=== PATIENT | male | born 1955 | race African-American/Black ===

== ENCOUNTER 2016-11-22 19:53 | Emergency (ER) | payer MEDICAID ==
[~2016-11-22] VITALS: Ht 185.4 cm; Wt 80.0 kg
[~2016-11-22 19:53] MED LIST: AMLO10TA4; ASPI-1035 PO; AZOPT RIGHTEYE; BRIM5DRO RIGHTEYE; CAPSAICIN CREAM; DORZ10DR9 RIGHTEYE; DOXE10CA2 PO; FINA5TAB11 PO; LATA2.5D2 RIGHTEYE; LORA-250; NAPR550T4 PO; SYN175; TRAM50TA; ZOLP10TA2
[2016-11-22] MEDS ORDERED: ONDANSETRON HCL 4MG/2ML VIAL IV STA (20:53)
[2016-11-22] MEDS ORDERED: SODIUM CHLORIDE 0.9% 1,000 ML IV ONE (20:53)
[2016-11-22] MEDS ORDERED: KETOROLAC 30MG/ML VIAL IV STA (20:53)
[2016-11-22 21:28] LABS: BASOPHILS % 0.9 % (0.0-2.0); DIFFERENTIAL COMMENT 0; EOSINOPHILS % 0.1 % (0.0-5.0); HEMATOCRIT. 48.2 % (42.0-52.0); HEMOGLOBIN. 16.3 g/dL (14.0-18.0); LYMPHOCYTES % 15.3 % (20.0-50.0); MEAN CORPUSCULAR HEMOGLOBIN 32.3 pg (28.0-32.0); MEAN CORPUSCULAR HGB CONC 33.7 g/dL (31.0-37.0); MEAN CORPUSCULAR VOLUME 95.9 fL (80.0-94.0); MEAN PLATELET VOLUME 8.8 fl (7.4-10.4); MONOCYTES % 5.1 % (2.0-8.0); NEUTROPHILS % 78.6 % (40.0-76.0); PLATELET 229 x1000/uL (130-400); RED BLOOD CELL COUNT 5.03 mill/uL (4.7-6.1); RED CELL DISTRIBUTION WIDTH 13.4 % (11.6-14.6); WHITE BLOOD COUNT 4.7 x1000/uL (4.5-11.0)
[2016-11-22 21:31] LABS: CHLORIDE 103 mEq/L (98-107); INDEX HEMOLYSI 1 (1-3); INDEX ICTERIC 1 (1-4); INDEX LIPEMIC 1 (1-3)
[2016-11-22 21:33] LABS: CALCIUM 9.6 mg/dL (8.5-10.1); INR 1.1; PROTHROMBIN TIME 11.5 sec
[2016-11-22 21:39] LABS: ALANINE AMINOTRANSFERASE 25 IU/L (13-61); ALBUMIN 4.2 g/dL (3.4-5.0); ANION GAP 16; CARBON DIOXIDE 26 mEq/L (21-32); UREA NITROGEN BLOOD 12 mg/dL (7-21); eGFR > 60 mL/min (>60)
[2016-11-22] MEDS ORDERED: MORPHINE SULFATE 4 MG/ML CPJ (NOT FOR IM USE) IV ONE (22:30)
[2016-11-22 23:15] VITALS: BP 175/92
[2016-11-22 23:37] LABS: CLARITY URINE CLEAR (CLEAR); COLOR URINE YELLOW (YELLOW); GLUCOSE URINE TRACE (NEGATIVE); KETONES URINE NEGATIVE (NEGATIVE); LEUKOCYTE ESTERASE URINE NEGATIVE (NEGATIVE); NITRITE URINE NEGATIVE (NEGATIVE); OCCULT BLOOD URINE 1+ (NEGATIVE); PROTEIN URINE 1+ (NEGATIVE); SPECIFIC GRAVITY URINE 1.014 (1.005-1.030); UROBILINOGEN URINE 0.2 E.U./dL (0.2-1.0)
[2016-11-23 00:07] LABS: BACTERIA URINE TRACE; SQUAMOUS EPITHELIAL CELL URINE NONE SEEN /lpf (RARE/1+); WBC URINE 0-2 /hpf (0-2)
== END 2016-11-23 00:12 | disposition home or self-care (01) ==
LOC: ER 19:53
DX: R10.33 Periumbilical pain (principal); I10 Essential (primary) hypertension; F17.210 Nicotine dependence, cigarettes, uncomplicated; F12.10 Cannabis abuse, uncomplicated; Z79.82 Long term (current) use of aspirin; Z79.899 Other long term (current) drug therapy; Z90.49 Acquired absence of other specified parts of digestive tract
CPT/HCPCS: 36415; 74176; 80053; 81001; 83690; 85025; 85610; 96361; 96374; 96375; 99285; 99406; J1885; J2270; J2405; J7030; Z7610

== ENCOUNTER 2017-11-07 19:16 | Emergency (ER) | payer MEDICAID ==
[~2017-11-07] VITALS: Ht 182.9 cm; Wt 88.5 kg
[~2017-11-07 19:16] MED LIST changes: -ASPI-1035 PO; +ASPI-1159 PO; +NAPR-1164 PO; -NAPR550T4 PO
[2017-11-07] MEDS ORDERED: SODIUM CHLORIDE 0.9% 1,000 ML IV ONE (20:26)
[2017-11-07] MEDS ORDERED: MORPHINE SULFATE 4 MG/ML CPJ (NOT FOR IM USE) IV STA (20:26)
[2017-11-07] MEDS ORDERED: ONDANSETRON HCL 4MG/2ML VIAL IV STA (20:26)
[2017-11-07 20:52] LABS: BASOPHILS % 0.3 % (0.0-2.0); EOSINOPHILS % 0.1 % (0.0-5.0); HEMATOCRIT. 49.6 % (42.0-52.0); HEMOGLOBIN. 17.6 g/dL (14.0-18.0); LYMPHOCYTES % 14.2 % (20.0-50.0); MEAN CORPUSCULAR VOLUME 93.2 fL (80.0-94.0); MEAN PLATELET VOLUME 8.4 fl (7.4-10.4); MONOCYTES % 14.2 % (2.0-8.0); NEUTROPHILS % 71.2 % (40.0-76.0); PLATELET 241 x1000/uL (130-400); RED BLOOD CELL COUNT 5.33 mill/uL (4.7-6.1); RED CELL DISTRIBUTION WIDTH 14.1 % (11.6-14.6)
[2017-11-07 20:56] LABS: INR 1.1
[2017-11-07 20:58] LABS: CHLORIDE 100 mEq/L (98-107)
[2017-11-07 21:49] LABS: CLARITY URINE CLOUDY (CLEAR); COLOR URINE DARK YELLOW (YELLOW); KETONES URINE NEGATIVE (NEGATIVE); LEUKOCYTE ESTERASE URINE NEGATIVE (NEGATIVE); NITRITE URINE NEGATIVE (NEGATIVE); OCCULT BLOOD URINE 2+ (NEGATIVE); PH URINE 5.5 (4.5-8.0); PROTEIN URINE 3+ (NEGATIVE); SPECIFIC GRAVITY URINE 1.021 (1.005-1.030); UROBILINOGEN URINE 0.2 E.U./dL (0.2-1.0)
[2017-11-07] MEDS ORDERED: MAGNESIUM/ALUMINUM HYDROXIDE/SIMETHICONE 30ML UDC PO ONE (23:15)
[2017-11-07] MEDS ORDERED: IOHEXOL-300 100 ML BOTTLE ONE (23:28)
[2017-11-08] MEDS ORDERED: MORPHINE SULFATE 2 MG/ML CPJ (NOT FOR IM USE) IV ONE (01:15)
[2017-11-08] MEDS ORDERED: MORPHINE SULFATE 4 MG/ML CPJ (NOT FOR IM USE) IV NR (02:30)
[2017-11-08] MEDS ORDERED: POTASSIUM CHLORIDE 20MEQ TABLET SR PO ONE (04:15)
[2017-11-08 05:32] VITALS: BP 133/82
== END 2017-11-08 05:50 | disposition home or self-care (01) ==
LOC: ER 19:38
DX: K52.9 Noninfective gastroenteritis and colitis, unspecified (principal); K59.00 Constipation, unspecified; I10 Essential (primary) hypertension; F17.200 Nicotine dependence, unspecified, uncomplicated; F12.10 Cannabis abuse, uncomplicated; Z90.49 Acquired absence of other specified parts of digestive tract; Z79.82 Long term (current) use of aspirin
CPT/HCPCS: 36415; 74177; 80053; 81003; 83690; 85025; 85610; 93005; 96374; 96375; 96376; 99285; J2270; J2405; J7030; Q9967

== ENCOUNTER 2018-01-31 17:24 | Emergency (ER) | payer MEDICAID ==
[~2018-01-31] VITALS: Ht 177.8 cm; Wt 74.0 kg
[2018-01-31] MEDS ORDERED: MORPHINE SULFATE 4 MG/ML CPJ (NOT FOR IM USE) IV STA ×2 (17:45→18:50)
[2018-01-31] MEDS ORDERED: ONDANSETRON HCL 4MG/2ML VIAL IV STA (17:45)
[2018-01-31] MEDS ORDERED: SODIUM CHLORIDE 0.9% 1,000 ML IV ONE (17:45)
[2018-01-31 18:05] LABS: BASOPHILS % 1.2 % (0.0-2.0); HEMATOCRIT. 45.4 % (42.0-52.0); HEMOGLOBIN. 15.6 g/dL (14.0-18.0); LYMPHOCYTES % 29.2 % (20.0-50.0); MEAN CORPUSCULAR HEMOGLOBIN 32.5 pg (28.0-32.0); MEAN CORPUSCULAR VOLUME 94.8 fL (80.0-94.0); MEAN PLATELET VOLUME 7.8 fl (7.4-10.4); MONOCYTES % 8.1 % (2.0-8.0); NEUTROPHILS % 59.5 % (40.0-76.0); PLATELET 234 x1000/uL (130-400); RED BLOOD CELL COUNT 4.79 mill/uL (4.7-6.1)
[2018-01-31 18:12] LABS: CHLORIDE 106 mEq/L (98-107); INR 1.1; PROTHROMBIN TIME 11.2 sec (9.4-11.6)
[2018-01-31] MEDS ORDERED: ONDANSETRON HCL 4MG/2ML VIAL IV ONE (19:00)
[2018-01-31 19:01] LABS: CLARITY URINE CLEAR (CLEAR); COLOR URINE YELLOW (YELLOW); KETONES URINE TRACE (NEGATIVE); LEUKOCYTE ESTERASE URINE NEGATIVE (NEGATIVE); NITRITE URINE NEGATIVE (NEGATIVE); OCCULT BLOOD URINE NEGATIVE (NEGATIVE); PROTEIN URINE NEGATIVE (NEGATIVE); SPECIFIC GRAVITY URINE 1.015 (1.005-1.030); UROBILINOGEN URINE 0.2 E.U./dL (0.2-1.0)
[2018-01-31] MEDS ORDERED: IOHEXOL-300 100 ML BOTTLE ONE (20:47)
[2018-01-31 22:39] VITALS: BP 163/90
== END 2018-01-31 23:00 | disposition home or self-care (01) ==
LOC: ER 17:30 → CANBEDREQ 23:13
DX: R10.9 Unspecified abdominal pain (principal); R11.10 Vomiting, unspecified; E11.9 Type 2 diabetes mellitus without complications; I10 Essential (primary) hypertension; F17.200 Nicotine dependence, unspecified, uncomplicated; F12.10 Cannabis abuse, uncomplicated
CPT/HCPCS: 36415; 71045; 74177; 80053; 81003; 82962; 83690; 85025; 85610; 96361; 96374; 96375; 96376; 99285; G0482; J2270; J2405; J7030; Q9967; Z7610

== ENCOUNTER 2018-01-31 23:27 | Emergency (ER) | payer MEDICAID ==
[~2018-01-31] VITALS: Ht 177.8 cm; Wt 66.0 kg
[2018-02-01] MEDS ORDERED: ONDANSETRON HCL 4MG/2ML VIAL IV STA (05:18)
[2018-02-01] MEDS ORDERED: MORPHINE SULFATE 4 MG/ML CPJ (NOT FOR IM USE) IV STA (05:18)
[2018-02-01] MEDS ORDERED: TAMSULOSIN HCL 0.4MG SR CAPSULE PO SCH (06:30)
[2018-02-01] MEDS ORDERED: KETOROLAC 30MG/ML VIAL IV ONE (06:30)
[2018-02-01] MEDS ORDERED: FAMOTIDINE 20MG/2ML VIAL IV SCH (06:30)
[2018-02-01 07:02] LABS: CLARITY URINE CLEAR (CLEAR); COLOR URINE YELLOW (YELLOW); KETONES URINE NEGATIVE (NEGATIVE); LEUKOCYTE ESTERASE URINE NEGATIVE (NEGATIVE); NITRITE URINE NEGATIVE (NEGATIVE); OCCULT BLOOD URINE 1+ (NEGATIVE); PH URINE 6.5 (4.5-8.0); PROTEIN URINE 2+ (NEGATIVE); SPECIFIC GRAVITY URINE 1.018 (1.005-1.030); UROBILINOGEN URINE 0.2 E.U./dL (0.2-1.0)
[2018-02-01 08:03] VITALS: BP 161/89
[2018-02-02] MEDS ORDERED: FAMOTIDINE 20MG/2ML VIAL IV SCH (09:00)
== END 2018-02-01 08:28 | disposition home or self-care (01) ==
LOC: ER 02-01 00:49
DX: N20.0 Calculus of kidney (principal); K85.90 Acute pancreatitis without necrosis or infection, unspecified; E11.9 Type 2 diabetes mellitus without complications; I10 Essential (primary) hypertension; E05.90 Thyrotoxicosis, unspecified without thyrotoxic crisis or storm; F12.10 Cannabis abuse, uncomplicated; N40.0 Benign prostatic hyperplasia without lower urinary tract symptoms; Z90.49 Acquired absence of other specified parts of digestive tract
CPT/HCPCS: 81003; 96374; 96375; 99284; J1885; J2270; J2405; J3490; Z7610; 96376

== ENCOUNTER 2021-04-25 06:42 | Inpatient (IN) | payer MEDICARE, MEDICAID ==
[~2021-04-25] VITALS: Ht 180.3 cm; Wt 59.0 kg
[~2021-04-25 06:42] MED LIST changes: -ASPI-1159 PO; +ASPI-1497 PO; +LATA2.5D14 RIGHTEYE; -LATA2.5D2 RIGHTEYE
[2021-04-25] MEDS ORDERED: LACTATED RINGERS 1,000 ML IV SCH (07:30)
[2021-04-25] MEDS ORDERED: IBUP-2030 MT (09:40)
[2021-04-25] MEDS ORDERED: TAMS-11 MT (09:40)
[2021-04-25] MEDS ORDERED: LIDO30CR20 TP (09:44)
[2021-04-25] MEDS ORDERED: PROPOFOL 200MG/20ML VIAL IV ONE (09:45)
[2021-04-25] MEDS ORDERED: FENTANYL CITRATE/PF 50MCG/ML 2ML VIAL ONE ×2 (09:45→10:42)
[2021-04-25] MEDS ORDERED: MIDAZOLAM HCL 2 MG/2 ML VIAL ONE (09:46)
[2021-04-25] MEDS ORDERED: CEFAZOLIN SODIUM 1000MG/VIAL ONE (10:12)
[2021-04-25] MEDS ORDERED: GLYCOPYRROLATE 0.2 MG/ML 2ML VIAL ONE (10:17)
[2021-04-25] MEDS ORDERED: EPHEDRINE SULFATE 50MG/ML VIAL ONE (10:40)
[2021-04-25] MEDS ORDERED: KETOROLAC 30MG/ML VIAL ONE (11:07)
[2021-04-25] MEDS ORDERED: LORAZEPAM 1MG TABLET PO PRN (11:15)
[2021-04-25] MEDS ORDERED: MAGNESIUM HYDROXIDE 400MG/5ML 30ML UDC PO PRN (11:15)
[2021-04-25] MEDS ORDERED: NALOXONE HCL 0.4MG/ML VIAL IV PRN (11:30)
[2021-04-25] MEDS ORDERED: LORAZEPAM 2MG/ML CPJ IV PRN (11:40)
[2021-04-25] MEDS ORDERED: LORAZEPAM 2MG/ML CPJ ONE (11:47)
[2021-04-25] MEDS ORDERED: ONDANSETRON HCL 4MG/2ML INJ IV PRN (12:15)
[2021-04-25] MEDS ORDERED: MEPERIDINE HCL/PF 25MG/ML CPJ IV PRN (12:15)
[2021-04-25] MEDS ORDERED: FENTANYL CITRATE/PF 50MCG/ML 2ML VIAL IV PRN (12:15)
[2021-04-25] MEDS ORDERED: HYDROMORPHONE HCL/PF 2MG/ML CPJ IV PRN (12:15)
[2021-04-25 13:02] LABS: HEMOGLOBIN 13.9 g/dL (14.0-18.0)
[2021-04-25] MEDS ORDERED: OXYBUTYNIN CHLORIDE 5MG TABLET PO NR (13:30)
[2021-04-25] MEDS ORDERED: CEFAZOLIN SODIUM 1000MG/VIAL IV SCH (14:00)
[2021-04-25 16:00] VITALS: BP 154/77
[2021-04-25 18:39] VITALS: BP 135/77
[2021-04-25] MEDS: DOCUSATE SODIUM 100MG CAPSULE PO SCH (18:47)
[2021-04-25] MEDS: HYDROCODONE/ACETAMINOPHEN 10/325MG TABLET PO PRN (18:58)
[2021-04-25] MEDS ORDERED: POTASSIUM CHLORIDE 20MEQ/PACKET PO SCH ×2 (19:02→20:15)
[2021-04-25] MEDS ORDERED: TAMS-11 PO (19:15)
[2021-04-25] MEDS ORDERED: LEVO200T8 PO (19:15)
[2021-04-25] MEDS ORDERED: LIDO35.44 TP (19:15)
[2021-04-25] MEDS ORDERED: FINA5TAB3 PO (19:15)
[2021-04-25] MEDS ORDERED: IBUP-2030 PO (19:15)
[2021-04-25] MEDS ORDERED: DORZ10DR9 EACHEYE (19:15)
[2021-04-25] MEDS ORDERED: AMLO10TA80 MT (19:15)
[2021-04-25] MEDS ORDERED: *PATIENT'S OWN MEDICATION STORAGE XX SCH (19:45)
[2021-04-25 20:00] VITALS: BP 126/76
[2021-04-25] MEDS: OXYBUTYNIN CHLORIDE 5MG TABLET PO SCH (21:15)
[2021-04-25] MEDS ORDERED: CEFAZOLIN 1000MG PREMIX 50 ML IV SCH (22:00)
[2021-04-26] VITALS: BP 147/91
[2021-04-26] MEDS ORDERED: OMEPRAZOLE 20MG CAPSULE EXTENDED RELEASE PO PRN (01:00)
[2021-04-26] MEDS ORDERED: LORAZEPAM 2MG/ML CPJ IV PRN (02:30)
[2021-04-26] MEDS: OMEPRAZOLE 20MG CAPSULE EXTENDED RELEASE PO SCH ×2 (03:17→17:09)
[2021-04-26] MEDS: HYDROCODONE/ACETAMINOPHEN 5/325MG TABLET PO PRN ×2 (03:17→12:26)
[2021-04-26 04:00] VITALS: BP 107/74
[2021-04-26] MEDS: OXYBUTYNIN CHLORIDE 5MG TABLET PO SCH ×3 (05:20→21:52)
[2021-04-26 06:50] LABS: CHLORIDE 108 mEq/L (98-107)
[2021-04-26 06:56] LABS: EOSINOPHILS % 2.1 % (0.0-5.0); HEMATOCRIT. 40.3 % (42.0-52.0); HEMOGLOBIN. 13.7 g/dL (14.0-18.0); LYMPHOCYTES % 12.4 % (20.0-50.0); MEAN CORPUSCULAR HEMOGLOBIN 32.5 pg (28.0-32.0); MEAN CORPUSCULAR VOLUME 95.9 fL (80.0-94.0); MEAN PLATELET VOLUME 8.5 fl (7.4-10.4); MONOCYTES % 10.1 % (2.0-8.0); NEUTROPHILS % 74.4 % (40.0-76.0); PLATELET 201 x1000/uL (130-400); RED CELL DISTRIBUTION WIDTH 14.2 % (11.6-14.6)
[2021-04-26] MEDS: HYDROCODONE/ACETAMINOPHEN 10/325MG TABLET PO PRN ×2 (07:14→17:08)
[2021-04-26] MEDS: DORZOLAM/TIMOLOL 2.23/0.68% OPHTH DROPS 10ML RIGHTEYE SCH ×2 (08:40→21:51)
[2021-04-26] MEDS: AMLODIPINE 10MG TABLET PO SCH (08:41)
[2021-04-26] MEDS: LEVOTHYROXINE SODIUM 175MCG TABLET PO SCH (08:41)
[2021-04-26] MEDS: DOCUSATE SODIUM 100MG CAPSULE PO SCH ×2 (08:41→17:09)
[2021-04-26] MEDS ORDERED: POTASSIUM CHLORIDE 20MEQ TABLET SR PO SCH ×2 (10:00→14:00)
[2021-04-26] MEDS ORDERED: LEVOFLOXACIN 500MG TABLET PO SCH (11:00)
[2021-04-26] MEDS: BRIMONIDINE 0.2% OPHTH DROPS 5ML RIGHTEYE SCH ×2 (17:10→21:51)
[2021-04-26 20:00] VITALS: BP 130/74
[2021-04-26] MEDS ORDERED: LATANOPROST 0.005% OPHTH DROPS 2.5ML RIGHTEYE SCH (21:00)
[2021-04-27] VITALS: BP 142/66
[2021-04-27 04:00] VITALS: BP 120/66
[2021-04-27] MEDS: LEVOTHYROXINE SODIUM 175MCG TABLET PO SCH (06:26)
[2021-04-27] MEDS: BRIMONIDINE 0.2% OPHTH DROPS 5ML RIGHTEYE SCH (06:26)
[2021-04-27] MEDS: OMEPRAZOLE 20MG CAPSULE EXTENDED RELEASE PO SCH (06:26)
[2021-04-27] MEDS: OXYBUTYNIN CHLORIDE 5MG TABLET PO SCH (06:29)
[2021-04-27 08:00] VITALS: BP 115/58
[2021-04-27] MEDS: AMLODIPINE 10MG TABLET PO SCH (08:59)
[2021-04-27] MEDS: DOCUSATE SODIUM 100MG CAPSULE PO SCH (09:00)
[2021-04-27] MEDS: DORZOLAM/TIMOLOL 2.23/0.68% OPHTH DROPS 10ML RIGHTEYE SCH (09:01)
[2021-04-27 11:26] VITALS: BP 115/56
[2021-04-27 12:00] VITALS: BP 133/73
[2021-04-27] MEDS ORDERED: FAMOTIDINE 20MG TABLET PO SCH (21:00)
== END 2021-04-27 12:16 | disposition home or self-care (01) | DRG 482 ==
LOC: OR 06:42 → 6EST 06:43
PROVIDERS: ADMIT Urology; ATTEND Urology
PROC: 0VB08ZZ Excision of Prostate, Via Natural or Artificial Opening Endoscopic (ICD-10-PCS; principal; 2021-04-25)
DX: N40.1 Benign prostatic hyperplasia with lower urinary tract symptoms (principal); N13.8 Other obstructive and reflux uropathy; N32.89 Other specified disorders of bladder; F17.210 Nicotine dependence, cigarettes, uncomplicated; Z20.822 Contact with and (suspected) exposure to COVID-19; N41.1 Chronic prostatitis; Z80.3 Family history of malignant neoplasm of breast; Z87.442 Personal history of urinary calculi; Z79.899 Other long term (current) drug therapy; Z90.49 Acquired absence of other specified parts of digestive tract
CPT/HCPCS: 36415; 71045; 80048; 80051; 84132; 85014; 85018; 85025; 87426; 88305; 93005; J0690; J1170; J1885; J2060; J2250; J2704; J3010; J3490

== ENCOUNTER 2025-06-21 08:44 | Inpatient (IN) | payer MEDICARE, MEDICAID ==
[2025-06-21] VITALS (24 sets, daily range): BP systolic 128–178; BP diastolic 73–101; PULSE 53–78; RESP 12–25; TEMP 36.9–36.974; O2SAT 93–100
[~2025-06-21] VITALS: Ht 175.3 cm; Wt 53.5 kg
[~2025-06-21 08:44] MED LIST changes: -AMLO10TA4; +AMLO10TA80 PO; -ASPI-1497 PO; -AZOPT RIGHTEYE; -CAPSAICIN CREAM; +DOCU-422 PO; +DORZ10DR9 EACHEYE; -DOXE10CA2 PO; +FAMO20TA8 PO; +IBUP-2028 MT; -LATA2.5D14 RIGHTEYE; +LATA2.5D7 RIGHTEYE; +LIDO30CR20 TP; -LORA-250; +METF-414 PO; -NAPR-1164 PO; +TAMS-54 MT; +TOPUD PO; -TRAM50TA; -ZOLP10TA2
[2025-06-21] MEDS: IOHEXOL-350 100 ML BOTTLE ONE (09:06)
[2025-06-21 09:34] LABS: BASOPHILS % 2.4 % (0.0-2.0); EOSINOPHILS % 2.8 % (0.0-5.0); HEMATOCRIT. 27.3 % (42.0-52.0); HEMOGLOBIN. 9.0 g/dL (14.0-18.0); LYMPHOCYTES % 17.2 % (20.0-50.0); MEAN PLATELET VOLUME 8.5 fl (7.4-10.4); MONOCYTES % 7.8 % (2.0-8.0); NEUTROPHILS % 69.8 % (40.0-76.0); PLATELET 266 x1000/uL (130-400); RED BLOOD CELL COUNT 2.59 mill/uL (4.7-6.1); RED CELL DISTRIBUTION WIDTH 17.1 % (11.6-14.6)
[2025-06-21 09:44] LABS: CLARITY URINE CLEAR (CLEAR); COLOR URINE YELLOW (YELLOW); GLUCOSE URINE NEGATIVE (NEGATIVE); KETONES URINE NEGATIVE (NEGATIVE); LEUKOCYTE ESTERASE URINE NEGATIVE (NEGATIVE); NITRITE URINE NEGATIVE (NEGATIVE); OCCULT BLOOD URINE NEGATIVE (NEGATIVE); PH URINE 5.5 (4.5-8.0); PROTEIN URINE NEGATIVE (NEGATIVE); SPECIFIC GRAVITY URINE 1.028 (1.005-1.030); UROBILINOGEN URINE 0.2 E.U./dL (0.2-1.0)
[2025-06-21 09:47] LABS: TROPONIN I HIGH SENSITIVITY 40 ng/L (3.0-53)
[2025-06-21 10:10] LABS: CREATININE 1.4 mg/dL (0.6-1.3); UREA NITROGEN BLOOD 24 mg/dL (9-23)
[2025-06-21 10:12] LABS: ASPARTATE AMINOTRANSFERASE 38 IU/L (<34); BILIRUBIN DIRECT 0.2 mg/dL (<=3.0); BILIRUBIN TOTAL 0.5 mg/dL (0.1-1.0); PROTEIN TOTAL 6.3 g/dL (6.0-8.3)
[2025-06-21 10:14] LABS: *AMPHETAMINES SCREEN URINE NEGATIVE (NEGATIVE); *BARBITURATES SCREEN URINE NEGATIVE (NEGATIVE); *BENZODIAZEPINES SCREEN URINE NEGATIVE (NEGATIVE); *COCAINE SCREEN URINE NEGATIVE (NEGATIVE); CANNABINOID URINE SCREEN NEGATIVE (NEGATIVE); ECSTASY MDMA SCREEN URINE NEGATIVE (NEGATIVE); METHADONE URINE SCREEN NEGATIVE (NEGATIVE); OPIATES URINE SCREEN PRESUMPTIVE POSITIVE (NEGATIVE); PHENCYCLIDINE URINE SCREEN NEGATIVE (NEGATIVE)
[2025-06-21 10:43] LABS: INR 1.1
[2025-06-21] MEDS: MORPHINE SULFATE 2 MG/ML INJ (NOT FOR IM USE) IV PRN (10:54)
[2025-06-21] MEDS: DEXT 5%/LACTATED RINGERS 1,000 ML IV SCH (10:59)
[2025-06-21] MEDS: LEVETIRACETAM 500MG PREMIX 100 ML IV SCH (10:59)
[2025-06-21] MEDS ORDERED: NALOXONE HCL 0.4MG/ML VIAL IV PRN (12:45)
[2025-06-21] MEDS ORDERED: CLONIDINE 0.1MG TABLET PO PRN (13:00)
[2025-06-21] MEDS ORDERED: IPRATROPIUM/ALBUTEROL 0.5-3(2.5)MG/3ML NEB HHN PRN (13:00)
[2025-06-21] MEDS ORDERED: DOCUSATE SODIUM 100MG CAPSULE PO PRN (13:00)
[2025-06-21] MEDS ORDERED: ACETAMINOPHEN 325MG TABLET PO PRN ×2 (13:00)
[2025-06-21] MEDS ORDERED: DEXTROSE 50% WATER 50ML SYRINGE IV PRN (13:00)
[2025-06-21] MEDS: FAMOTIDINE 20MG TABLET PO SCH (13:24)
[2025-06-21] MEDS ORDERED: IOHEXOL-300 100 ML BOTTLE ONE (15:02)
[2025-06-21] MEDS: LATANOPROST 0.005% OPHTH DROPS 2.5ML RIGHTEYE SCH (16:47)
[2025-06-21] MEDS: INSULIN LISPRO 100 UNITS/ML SUBCUT SCH (16:47)
[2025-06-21] MEDS: BLOOD SUGAR DIAGNOSTIC STRIP TEST SCH (16:47)
[2025-06-21] MEDS ORDERED: GADOTERATE MEGLUMINE 5 MMOL/10 ML VIAL IV ONE (18:38)
[2025-06-21] MEDS: TAMSULOSIN HCL 0.4MG SR CAPSULE PO SCH (20:37)
[2025-06-21] MEDS: MELATONIN 3MG TABLET PO SCH (20:37)
[2025-06-21] MEDS: DOCUSATE SODIUM 100MG CAPSULE PO SCH (20:38)
[2025-06-21] MEDS: DORZOLAM/TIMOLOL 2%/0.5% OPHTH DROPS 10ML EACHEYE SCH (20:41)
[2025-06-22] VITALS (37 sets, daily range): BP systolic 105–137; BP diastolic 62–84; PULSE 50–76; RESP 9–20; TEMP 35.7–36.9; O2SAT 97–100
[2025-06-22] MEDS: LEVOTHYROXINE SODIUM 175MCG TABLET PO SCH (06:12)
[2025-06-22] MEDS: AMLODIPINE 10MG TABLET PO SCH (08:24)
[2025-06-22] MEDS: FINASTERIDE 5MG TABLET PO SCH (08:24)
[2025-06-22 09:08] LABS: BASOPHILS % 2.3 % (0.0-2.0); EOSINOPHILS % 3.2 % (0.0-5.0); HEMATOCRIT. 28.7 % (42.0-52.0); HEMOGLOBIN. 9.2 g/dL (14.0-18.0); LYMPHOCYTES % 20.6 % (20.0-50.0); MEAN PLATELET VOLUME 9.4 fl (7.4-10.4); MONOCYTES % 9.1 % (2.0-8.0); NEUTROPHILS % 64.8 % (40.0-76.0); PLATELET 261 x1000/uL (130-400); RED BLOOD CELL COUNT 2.68 mill/uL (4.7-6.1); RED CELL DISTRIBUTION WIDTH 17.0 % (11.6-14.6)
[2025-06-22 09:15] LABS: CREATININE 1.3 mg/dL (0.6-1.3); UREA NITROGEN BLOOD 21 mg/dL (9-23)
[2025-06-22] MEDS: LACTULOSE 20G/30ML UDC PO PRN (15:04)
[2025-06-22] MEDS: LACTULOSE 20G/30ML UDC PO SCH (17:02)
[2025-06-22] MEDS: MORPHINE SULFATE 4 MG/ML INJ (FOR IV/IM USE) IV PRN (22:27)
[2025-06-23] VITALS (7 sets, daily range): BP systolic 108–126; BP diastolic 68–81; PULSE 59–78; RESP 18–20; TEMP 36.1–36.8; O2SAT 98–99
[2025-06-23 06:31] LABS: BASOPHILS % 1.2 % (0.0-2.0); EOSINOPHILS % 2.8 % (0.0-5.0); HEMATOCRIT. 27.0 % (42.0-52.0); HEMOGLOBIN. 9.0 g/dL (14.0-18.0); LYMPHOCYTES % 13.2 % (20.0-50.0); MEAN PLATELET VOLUME 9.5 fl (7.4-10.4); MONOCYTES % 9.4 % (2.0-8.0); NEUTROPHILS % 73.4 % (40.0-76.0); PLATELET 237 x1000/uL (130-400); RED BLOOD CELL COUNT 2.58 mill/uL (4.7-6.1); RED CELL DISTRIBUTION WIDTH 17.1 % (11.6-14.6)
[2025-06-23 06:43] LABS: CREATININE 1.5 mg/dL (0.6-1.3)
[2025-06-23 06:44] LABS: UREA NITROGEN BLOOD 23 mg/dL (9-23)
[2025-06-23 07:03] LABS: FOLIC ACID (FOLATE) SERUM > 20.00 ng/mL (>5.38); VITAMIN B12 SERUM 1008 pg/mL (211-911)
[2025-06-23] MEDS ORDERED: POLY119P2 MT (11:12)
[2025-06-23] MEDS ORDERED: KEPP500 MT (11:12)
[2025-06-23] MEDS ORDERED: DEXA4TAB MT (11:44)
[2025-06-23] MEDS ORDERED: PANT40TA51 MT (11:45)
[2025-06-23] MEDS: PANTOPRAZOLE 40MG DR TABLET PO SCH (13:27)
[2025-06-23] MEDS ORDERED: OXYCODONE HCL/ACETAMINOPHEN 5/325MG TABLET PO PRN (15:45)
[2025-06-23] MEDS: OXYCODONE HCL/ACETAMINOPHEN 5/325MG TABLET PO PRN (18:27)
[2025-06-23] MEDS: DEXAMETHASONE 4MG TABLET PO SCH (21:03)
[2025-06-24] VITALS: BP 120/68; PULSE 65; RESP 18; TEMP 36.1; O2SAT 95
[2025-06-24 04:00] VITALS: BP 115/77; PULSE 72; RESP 18; TEMP 36.2; O2SAT 95
[2025-06-24] MEDS: MORPHINE SULFATE 4 MG/ML INJ (FOR IV/IM USE) IV PRN (04:20)
[2025-06-24 08:00] VITALS: BP 119/65; PULSE 62; RESP 17; TEMP 36.3; O2SAT 97
[2025-06-24 12:00] VITALS: BP 120/64; PULSE 65; RESP 16; TEMP 36.4; O2SAT 97
[2025-06-24 16:00] VITALS: BP 119/67; PULSE 63; RESP 17; TEMP 36.3; O2SAT 98
[2025-06-24] MEDS: ONDANSETRON HCL 4MG/2ML INJ IV PRN (17:49)
[2025-06-24 20:00] VITALS: BP 164/82; PULSE 76; RESP 19; TEMP 36.4; O2SAT 98
[2025-06-25] VITALS (8 sets, daily range): BP systolic 127–151; BP diastolic 68–92; PULSE 57–86; RESP 17–19; TEMP 36.3–36.5; O2SAT 95–97
[2025-07-01] MEDS ORDERED: DEXAMETHASONE 4MG TABLET PO SCH (09:00)
== END 2025-06-25 21:05 | disposition hospice, inpatient (51) | DRG 54 ==
LOC: ER 09:07 → MICUNO 10:06 → EDBEDREQTM 10:07 → EDBEDREQ 10:07 → EDBEDREQSVC 10:07 → ENRESERV 11:13 → MICUNO 12:34 → 7WST 06-22 18:54 → 4WST 06-23 21:56
PROVIDERS: ADMIT Family Medicine Adult Medicine; ATTEND Family Medicine Adult Medicine
DX: C79.31 Secondary malignant neoplasm of brain (principal); G93.6 Cerebral edema; C78.5 Secondary malignant neoplasm of large intestine and rectum; E87.20 Acidosis, unspecified; C78.6 Secondary malignant neoplasm of retroperitoneum and peritoneum; G81.91 Hemiplegia, unspecified affecting right dominant side; N17.9 Acute kidney failure, unspecified; R64 Cachexia; R16.0 Hepatomegaly, not elsewhere classified; C79.51 Secondary malignant neoplasm of bone; C78.7 Secondary malignant neoplasm of liver and intrahepatic bile duct; C79.89 Secondary malignant neoplasm of other specified sites; C34.11 Malignant neoplasm of upper lobe, right bronchus or lung; J44.9 Chronic obstructive pulmonary disease, unspecified; D53.9 Nutritional anemia, unspecified; E03.9 Hypothyroidism, unspecified; N18.31 Chronic kidney disease, stage 3a; E11.22 Type 2 diabetes mellitus with diabetic chronic kidney disease; I12.9 Hypertensive chronic kidney disease with stage 1 through stage 4 chronic kidney disease, or unspecified chronic kidney disease; E05.90 Thyrotoxicosis, unspecified without thyrotoxic crisis or storm; G40.909 Epilepsy, unspecified, not intractable, without status epilepticus; Z68.1 Body mass index [BMI] 19.9 or less, adult; H40.9 Unspecified glaucoma; N40.0 Benign prostatic hyperplasia without lower urinary tract symptoms; K59.00 Constipation, unspecified; E61.1 Iron deficiency; F17.210 Nicotine dependence, cigarettes, uncomplicated; I25.10 Atherosclerotic heart disease of native coronary artery without angina pectoris; M79.604 Pain in right leg; M48.08 Spinal stenosis, sacral and sacrococcygeal region; R59.0 Localized enlarged lymph nodes; E78.00 Pure hypercholesterolemia, unspecified; Z82.49 Family history of ischemic heart disease and other diseases of the circulatory system; Z79.84 Long term (current) use of oral hypoglycemic drugs; Z87.442 Personal history of urinary calculi; Z90.49 Acquired absence of other specified parts of digestive tract
CPT/HCPCS: 36415; 70496; 70498; 70553; 71045; 71260; 72141; 72146; 72148; 74177; 80048; 80076; 80305; 80320; 81003; 82105; 82607; 82728; 82746; 82962; 83036; 83540; 83550; 84484; 85025; 85044; 86850; 86900; 93005; 93970; 97162; 99291; A4606; A9577; J1815; J1953; J2270; J2405; J8540; Q9967; G0480